=== PATIENT | male | born 1955 | race Caucasian/White ===

== ENCOUNTER 2019-05-27 17:09 | Observation (INO) ==
[2019-05-27 18:15] LABS: INR 1.3; Prothrombin Time 14.3 Seconds (9.4-12.1)
[2019-05-27 18:16] LABS: Basophils # 0.1 K/mcL (0.0-0.2); Basophils % 0.6 %; Eosinophils # 0.4 K/mcL (0.0-0.6); Eosinophils % 4.2 %; Hematocrit 41.1 % (37.5-50.1); Hemoglobin 14.1 g/dL (12.9-16.9); Immature Granulocytes % 0.9 % (0-4); Lymphocytes # 1.3 K/mcL (0.6-4.6); Lymphocytes % 14.7 %; Mean Corpuscular HGB Conc 34.3 g/dL (31.6-35.5); Mean Corpuscular Hemoglobin 29.6 pg (28.0-33.3); Mean Corpuscular Volume 86.2 fL (83.0-100.0); Mean Platelet Volume 9.4 fL (9.4-12.4); Monocytes # 0.7 K/mcL (0.0-1.3); Monocytes % 7.7 %; Neutrophils # 6.3 K/mcL (1.6-8.9); Platelet Count 192 K/mcL (140-400); Red Blood Count 4.77 M/mcL (4.19-5.50); Red Cell Distribution Width 12.7 % (11.5-14.5); Segmented Neutrophils % 71.9 %; White Blood Count 8.8 K/mcL (4.3-11.1)
[2019-05-27 18:32] LABS: BUN/Creatinine Ratio 12 (6-26); Blood Urea Nitrogen 9 mg/dL (8-23); Calcium 9.2 mg/dL (8.6-10.3); Carbon Dioxide 24 mEq/L (23-29); Chloride 96 mEq/L (98-107); Glucose 102 mg/dL (70-105); Osmolality,Calculated 265 (280-300); Potassium 3.8 mEq/L (3.5-5.1); Sodium 128 mEq/L (136-145); eGFR For African Americans > 60 (> 60); eGFR For Non-African Americans > 60 (> 60)
[2019-05-27 18:33] LABS: Troponin I < 0.03 ng/mL (< 0.04)
[2019-05-27] MEDS ORDERED: Aspirin 325 MG TABLET PO ONE (18:33)
[2019-05-27] MEDS ORDERED: Isovue-370 500 ML BOTTLE IVP ONE (19:07)
[2019-05-27] MEDS ORDERED: *HR* FentaNYL (PF) 100 MCG/2 ML VIAL IVP ONE (19:08)
[2019-05-27] MEDS ORDERED: Naloxone 0.4 MG/ML INJ IVP PRN (20:28)
[2019-05-27] MEDS ORDERED: Ondansetron ODT 4 MG TAB.RAPDIS SL PRN (20:28)
[2019-05-27] MEDS ORDERED: Nitroglycerin 0.4 MG TAB.SUBL SL PRN (22:27)
[2019-05-27 22:40] LABS: Sodium, Urine 53.6 mEq/L
[2019-05-27 22:44] LABS: Bilirubin,Urine Negative (Negative); Blood,Urine Negative (Negative); Clarity,Urine Clear (Clear); Color,Urine Yellow (Yellow); Glucose,Urine (UA) Normal (Normal); Ketones,Urine Negative (Negative); Leukocyte Esterase,Urine Negative (Negative); Nitrite,Urine Negative (Negative); PH,Urine 7.5 pH Units (5.0-8.0); Protein,Urine Negative (Neg-Trace); Specific Gravity,Urine 1.027 (1.010-1.025); Urobilinogen,Urine Normal (Normal)
[2019-05-27] MEDS ORDERED: Acetaminophen 325 MG TABLET PO PRN (22:44)
[2019-05-27] MEDS ORDERED: *HR* OxyCODONE Immed Rel 5 MG TABLET PO PRN (22:44)
[2019-05-27] MEDS ORDERED: *HR* HYDROcodone/Acet 5/325 mg TABLET PO PRN (22:44)
[2019-05-27] MEDS ORDERED: 0.9 % Sodium Chloride 1,000 ML IVC SCH (23:45)
[2019-05-28 01:19] LABS: Basophils # 0.1 K/mcL (0.0-0.2); Basophils % 0.6 %; Eosinophils # 0.4 K/mcL (0.0-0.6); Eosinophils % 4.8 %; Hematocrit 40.6 % (37.5-50.1); Immature Granulocytes % 0.8 % (0-4); Lymphocytes # 1.4 K/mcL (0.6-4.6); Lymphocytes % 16.5 %; Mean Corpuscular HGB Conc 34.5 g/dL (31.6-35.5); Mean Corpuscular Hemoglobin 29.9 pg (28.0-33.3); Mean Corpuscular Volume 86.8 fL (83.0-100.0); Monocytes # 0.6 K/mcL (0.0-1.3); Monocytes % 7.5 %; Neutrophils # 5.8 K/mcL (1.6-8.9); Platelet Count 212 K/mcL (140-400); Red Blood Count 4.68 M/mcL (4.19-5.50); Red Cell Distribution Width 12.9 % (11.5-14.5); Segmented Neutrophils % 69.8 %; White Blood Count 8.4 K/mcL (4.3-11.1)
[2019-05-28 01:38] LABS: BUN/Creatinine Ratio 11 (6-26); Blood Urea Nitrogen 8 mg/dL (8-23); Calcium 9.1 mg/dL (8.6-10.3); Carbon Dioxide 23 mEq/L (23-29); Chloride 98 mEq/L (98-107); Glucose 112 mg/dL (70-105); Osmolality,Calculated 269 (280-300); Potassium 3.7 mEq/L (3.5-5.1); Sodium 130 mEq/L (136-145); eGFR For African Americans > 60 (> 60); eGFR For Non-African Americans > 60 (> 60)
[2019-05-28 04:20] LABS: Estimated Average Glucose 131 mg/dl
[2019-05-28] MEDS ORDERED: *HR* Heparin 5,000 UNIT/ML VIAL SQ SCH (06:00)
[2019-05-28] MEDS ORDERED: hydrALAZINE 10 MG TABLET PO SCH (08:00)
[2019-05-28] MEDS ORDERED: Regadenoson 0.4 MG/5 ML SYRINGE IVP ONE (08:22)
[2019-05-28] MEDS ORDERED: lisinopriL 20 MG TABLET PO SCH (09:00)
[2019-05-28] MEDS ORDERED: ALPRAZolam 1 MG TABLET PO SCH (09:00)
[2019-05-28] MEDS ORDERED: hydroCHLOROthiazide 25 MG TABLET PO SCH (09:00)
[2019-05-28] MEDS ORDERED: Metoprolol XL (24 HR) Succ 50 MG TAB.ER.24H PO SCH (09:00)
[2019-05-28] MEDS ORDERED: amLODIPine 5 MG TABLET PO SCH (09:00)
[2019-05-28] MEDS ORDERED: Finasteride 5 MG TABLET PO SCH (09:00)
[2019-05-28] MEDS ORDERED: Aspirin Enteric Coated 325 MG Tablet PO SCH (09:00)
[2019-05-28] MEDS ORDERED: Isosorbide MONOnitrate (24 HR) 60 MG TAB.ER.24H PO SCH (09:00)
[2019-05-28] MEDS ORDERED: Gabapentin 300 MG CAPSULE PO SCH (09:00)
[2019-05-28 11:40] VITALS: BP 156/89
[2019-05-31 12:28] LABS: Urine Collection Volume RANDOM mL
== END 2019-05-28 13:39 | disposition home or self-care (01) ==
LOC: EMEROOARM 17:09 → 3BNU 17:09
PROVIDERS: ADMIT Internal Medicine; ATTEND Internal Medicine

== ENCOUNTER 2019-10-09 01:06 | Observation (INO) ==
[2019-10-09] MEDS ORDERED: *HR* FentaNYL (PF) 100 MCG/2 ML VIAL IVP ONE (01:32)
[2019-10-09] MEDS ORDERED: Aspirin 325 MG TABLET PO ONE (01:32)
[2019-10-09] MEDS ORDERED: Aspirin 81 MG TAB.CHEW PO STA (01:57)
[2019-10-09 02:34] LABS: Basophils # 0.1 K/mcL (0.0-0.2); Basophils % 0.8 %; Eosinophils # 0.3 K/mcL (0.0-0.6); Eosinophils % 2.8 %; Hemoglobin 13.8 g/dL (12.9-16.9); Immature Granulocytes % 0.8 % (0-4); Lymphocytes # 2.1 K/mcL (0.6-4.6); Lymphocytes % 20.8 %; Mean Corpuscular HGB Conc 34.5 g/dL (31.6-35.5); Mean Corpuscular Hemoglobin 29.7 pg (28.0-33.3); Mean Corpuscular Volume 86.2 fL (83.0-100.0); Mean Platelet Volume 9.8 fL (9.4-12.4); Monocytes % 10.1 %; Neutrophils # 6.6 K/mcL (1.6-8.9); Platelet Count 212 K/mcL (140-400); Red Blood Count 4.64 M/mcL (4.19-5.50); Segmented Neutrophils % 64.7 %; White Blood Count 10.2 K/mcL (4.3-11.1)
[2019-10-09 02:38] LABS: INR 1.2; Prothrombin Time 13.3 Seconds (9.4-12.1)
[2019-10-09 02:51] LABS: BUN/Creatinine Ratio 14 (6-26); Blood Urea Nitrogen 13 mg/dL (8-23); Calcium 9.3 mg/dL (8.6-10.3); Carbon Dioxide 23 mEq/L (23-29); Chloride 98 mEq/L (98-107); Glucose 95 mg/dL (70-105); Osmolality,Calculated 274 (280-300); Potassium 3.5 mEq/L (3.5-5.1); Sodium 132 mEq/L (136-145); Troponin I < 0.03 ng/mL (< 0.04); eGFR For African Americans > 60 (> 60); eGFR For Non-African Americans > 60 (> 60)
[2019-10-09] MEDS ORDERED: Isovue-370 500 ML BOTTLE IVP ONE (02:56)
[2019-10-09] MEDS ORDERED: Naloxone 0.4 MG/ML INJ IVP PRN (05:49)
[2019-10-09] MEDS ORDERED: Morphine Sulfate 2 MG/ML SYRINGE IVP PRN (07:21)
[2019-10-09] MEDS ORDERED: tiZANidine 4 MG TABLET PO PRN (08:49)
[2019-10-09] MEDS ORDERED: Nitroglycerin 0.4 MG TAB.SUBL SL PRN (08:49)
[2019-10-09] MEDS ORDERED: Sulfamethoxazole/Trimeth DS 1 EACH TABLET PO SCH (09:00)
[2019-10-09] MEDS ORDERED: Isosorbide MONOnitrate (24 HR) 60 MG TAB.ER.24H PO SCH (09:00)
[2019-10-09] MEDS: Finasteride 5 MG TABLET PO SCH (10:01)
[2019-10-09] MEDS: Ranolazine 500 MG TAB.ER.12H PO SCH ×2 (10:01→21:04)
[2019-10-09] MEDS: lisinopriL 20 MG TABLET PO SCH ×2 (10:02→21:04)
[2019-10-09] MEDS: hydroCHLOROthiazide 25 MG TABLET PO SCH (10:02)
[2019-10-09] MEDS: ALPRAZolam 1 MG TABLET PO SCH ×3 (10:02→21:04)
[2019-10-09] MEDS: Metoprolol XL (24 HR) Succ 50 MG TAB.ER.24H PO SCH (10:02)
[2019-10-09] MEDS: Aspirin Enteric Coated 81 MG Tablet PO SCH (10:02)
[2019-10-09] MEDS: Gabapentin 300 MG CAPSULE PO SCH ×3 (10:03→21:03)
[2019-10-09] MEDS ORDERED: *HR* Heparin 5,000 UNIT/ML VIAL IVP PRN ×2 (10:59)
[2019-10-09] MEDS ORDERED: *HR* Heparin 5,000 UNIT/ML VIAL IVP ONE (10:59)
[2019-10-09] MEDS ORDERED: Heparin 25,000UNIT/250ML 1/2NS 25,000 UNIT/250 ML IV.SOLN IVC SCH (11:00)
[2019-10-09 11:49] LABS: Heparin anti-factor XA UFH < 0.04 IU/mL (0.30-0.70)
[2019-10-09 11:50] LABS: INR 1.2; Prothrombin Time 13.8 Seconds (9.4-12.1)
[2019-10-09] MEDS ORDERED: Perflutren Lipid Microsphere 1.3 ML in 0.9 % Sodium Chloride 8.7 ML IVP PRN (12:09)
[2019-10-09 12:13] LABS: Hematocrit 42.9 % (37.5-50.1); Hemoglobin 14.3 g/dL (12.9-16.9); Mean Corpuscular HGB Conc 33.3 g/dL (31.6-35.5); Mean Corpuscular Hemoglobin 28.8 pg (28.0-33.3); Mean Corpuscular Volume 86.3 fL (83.0-100.0); Mean Platelet Volume 9.7 fL (9.4-12.4); Platelet Count 208 K/mcL (140-400); Red Blood Count 4.97 M/mcL (4.19-5.50); White Blood Count 8.1 K/mcL (4.3-11.1)
[2019-10-09] MEDS ORDERED: 0.9 % Sodium Chloride 2,000 ML ONE (13:48)
[2019-10-09] MEDS ORDERED: *HR* Heparin 10,000 UNIT/10 ML VIAL ONE (13:48)
[2019-10-09] MEDS ORDERED: Nitroglycerin 1,000 MCG/10 ML VIAL IV ONE (13:48)
[2019-10-09] MEDS ORDERED: ISOVUE-370 200 ML INFUS..BTL ONE (13:48)
[2019-10-09] MEDS ORDERED: Heparin 1,000 UNITS/500 mL 500 ML ONE (13:48)
[2019-10-09] MEDS ORDERED: *HR* Midazolam HCl 2 MG/2 ML VIAL ONE (13:52)
[2019-10-09] MEDS ORDERED: *HR* FentaNYL (PF) 100 MCG/2 ML VIAL ONE (13:52)
[2019-10-09] MEDS: hydrALAZINE 10 MG TABLET PO SCH (17:18)
[2019-10-09] MEDS ORDERED: *HR* Heparin 5,000 UNIT/ML VIAL SQ SCH (18:00)
[2019-10-09] MEDS ORDERED: Temazepam 15 MG CAPSULE PO SCH (21:00)
[2019-10-09] MEDS ORDERED: Niacin (24 HR) 500 MG TAB.ER.24H PO SCH (21:00)
[2019-10-09] MEDS ORDERED: amLODIPine 5 MG TABLET PO SCH (21:00)
[2019-10-10 07:58] VITALS: BP 127/77
[2019-10-10] MEDS: Aspirin Enteric Coated 81 MG Tablet PO SCH (08:03)
[2019-10-10] MEDS: Ranolazine 500 MG TAB.ER.12H PO SCH (08:03)
[2019-10-10] MEDS: Gabapentin 300 MG CAPSULE PO SCH (08:03)
[2019-10-10] MEDS: hydrALAZINE 10 MG TABLET PO SCH (08:04)
[2019-10-10] MEDS: Finasteride 5 MG TABLET PO SCH (08:04)
[2019-10-10] MEDS: lisinopriL 20 MG TABLET PO SCH (08:04)
[2019-10-10] MEDS: hydroCHLOROthiazide 25 MG TABLET PO SCH (08:04)
[2019-10-10] MEDS: Metoprolol XL (24 HR) Succ 50 MG TAB.ER.24H PO SCH (08:04)
[2019-10-10] MEDS: ALPRAZolam 1 MG TABLET PO SCH (08:04)
== END 2019-10-10 09:49 | disposition home or self-care (01) ==
LOC: EMEROOARM 01:06 → 3BNU 01:06
PROVIDERS: ADMIT Internal Medicine; ATTEND Internal Medicine